=== PATIENT | female | born 1975 | race Two or more races ===

== ENCOUNTER 2020-03-28 16:03 | Emergency (ER) | payer BC ==
[~2020-03-28] VITALS: Ht 162.6 cm; Wt 59.9 kg
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
[2020-03-28] MEDS ORDERED: IBUPROFEN 600 MG TABLET PO ONE ×2 (17:30→17:36)
--- NOTE | 2020-03-28 17:39 | NUR ---
RADIOLOGY AT BEDSIDE FOR CHEST XRAY.
--- NOTE | 2020-03-28 19:24 | NUR ---
Patient discharged to home in stable condition. Written and verbal after care instructions given. Patient verbalizes understanding of instruction.
[2020-03-28 19:26] VITALS: BP 120/86
== END 2020-03-28 19:26 | disposition home or self-care (01) ==
LOC: ER 16:10
DX: M79.10 Myalgia, unspecified site (principal); M54.6 Pain in thoracic spine; M25.511 Pain in right shoulder; M25.512 Pain in left shoulder; Z90.89 Acquired absence of other organs; V49.49XA Driver injured in collision with other motor vehicles in traffic accident, initial encounter; Y93.89 Activity, other specified; Y92.413 State road as the place of occurrence of the external cause; Y99.8 Other external cause status
CPT/HCPCS: 71045-TC